=== PATIENT | male | born 1970 | race Caucasian/White ===

== ENCOUNTER → 2017-03-16 | Outpatient (CLI) | payer BC ==
[2017-03-16 15:20] LABS: BASOPHIL % 0.4 %; EOSINOPHIL # 0.3 K/uL (0.0-0.5); HEMATOCRIT 43.5 % (37.0-53.0); HEMOGLOBIN 14.9 g/dL (12.0-17.0); IMMATURE GRANULOCYTE % 0.4 %; LYMPHOCYTE # 2.4 K/uL (0.8-4.0); LYMPHOCYTE % 25.6 %; MCH 32.7 pg (27.0-34.0); MCHC 34.3 gm/dL (32.0-36.5); MCV 95.6 fl (83.0-98.0); MONOCYTE % 11.3 %; MPV 10.8 fl (9.4-12.4); NEUTROPHIL # (ANC) 5.5 K/uL (1.4-9.0); NEUTROPHIL % 59.3 %; NRBC % 0 /100WBC (0-0.00); PLATELET COUNT 266 K/uL (150-450); RBC 4.55 M/uL (4.00-6.00); RDW-CV 13.3 % (11.9-14.6); WBC 9.2 K/uL (4.0-11.0)
== END | disposition disaster alternative care site (69) ==
LOC: GLAB 14:51
PROVIDERS: Orthopaedic Surgery
DX: T84.53XD Infection and inflammatory reaction due to internal right knee prosthesis, subsequent encounter (principal)